=== PATIENT | female | born 1965 ===

== ENCOUNTER 2020-11-22 20:27 | Emergency (ER) | payer SELFPAY ==
[2020-11-22] MEDS ORDERED: ASPIRIN 325 MG TAB PO ONE (21:15)
[2020-11-22 21:48] LABS: Basophils % (Auto) 0.7 % (0.0-1.8); Eosinophils # (Auto) 0.1 K/mm3 (0.0-0.4); Eosinophils % (Auto) 0.9 % (0.0-4.3); Hematocrit 37.6 % (30.3-42.9); Hemoglobin 12.3 gm/dl (10.1-14.3); Lymphocytes # (Auto) 3.4 K/mm3 (1.2-5.4); Mean Corpuscular HGB Conc 33 % (30-34); Mean Corpuscular Volume 75 fl (79-97); Monocytes # (Auto) 0.4 K/mm3 (0.0-0.8); Monocytes % (Auto) 5.8 % (0.0-7.3); Platelet Count 232 K/mm3 (140-440); Red Blood Count 5.02 M/mm3 (3.65-5.03); Red Cell Distribution Width 14.4 % (13.2-15.2)
--- NOTE | 2020-11-22 21:58 | XRay Report ---
CHEST 2 VIEWS INDICATION: chestpain. COMPARISON: None FINDINGS: SUPPORT DEVICES: None. HEART: Within normal limits. LUNGS/PLEURA: No acute air space or interstitial disease. No pneumothorax. ADDITIONAL FINDINGS: None. IMPRESSION: 1. No acute findings. Signer Name: Chaim Porras MD Signed: 11/22/2020 9:54 PM Workstation Name: [id number]
[2020-11-22 22:07] LABS: Alanine Aminotransferase 19 units/L (7-56); Albumin 4.3 g/dL (3.9-5); BUN/Creatinine Ratio 23; Blood Urea Nitrogen 18 mg/dL (7-17); Calcium 9.8 mg/dL (8.4-10.2); Hemolysis Index 3
--- NOTE | 2020-11-22 22:13 | Emergency Department Report ---
ED Chest Pain HPI - General Chief Complaint: Chest Pain Stated Complaint: CHEST PAIN/POSS ANXIETY PUI?: No Time Seen by Provider: 11/22/20 21:52 Source: patient Mode of arrival: Ambulatory Limitations: No Limitations - History of Present Illness Initial Comments: Chief complaint: Chest pain HPI: This is a 55-year-old female with history of hypertension who presents with chest pain 3 hours prior to arrival. She has left-sided sticking tight sensation which lasted several minutes. She denies shortness of breath, fever, cough, nausea. She has been under a lot of stress. A few months prior, she had to bury her older sister and great nephew who were both killed by her estranged . Ex- is still on the loose. Patient is very upset that she has not received just for this horrible tragedy. Patient denies history of chest pain patient has history of heart disease. She denies family history of heart disease. MD Complaint: chest pain -: Gradual, hour(s) (3 hours prior to arrival) Onset: during rest Pain Location: left chest Pain Radiation: none Severity: moderate Severity scale (0 -10): 5 Quality: tightness, pressure, other (Sticking sensation) Consistency: now resolved Improves With: rest Worsens With: nothing re: denies: nausea, vomting, diaphoresis, dyspnea, sense of impending doom Treatments Prior to Arrival: none - Related Data Allergies Allergy/AdvReac Type Severity Reaction Status Date / Time No Known Allergies Allergy Unverified 11/22/20 20:56 Heart Score - HEART Score History: Slightly suspicious EKG: Normal Age: 45-65 Risk factors: 1-2 risk factors Troponin: < normal limit HEART Score: 2 - EKG Read Time Time EKG Completed: 20:37 EKG Read Time: 20:40 ED Review of Systems ROS: Stated complaint: CHEST PAIN/POSS ANXIETY Other details as noted in HPI Comment: All other systems reviewed and negative Constitutional: denies: fever, malaise Respiratory: denies: cough, shortness of breath Cardiovascular: chest pain. denies: palpitations, edema, syncope Gastrointestinal: denies: abdominal pain, nausea, vomiting, diarrhea, constipation Psychiatric: denies: suicidal thoughts ED Past Medical Hx - Past Medical History Previous Medical History?: Yes Hx Hypertension: Yes - Surgical History Past Surgical History?: No - Family History Family history: hypertension, other (No family history of cardiac disease) - Social History Smoking Status: Never Smoker Substance Use Type: None ED Physical Exam - General Limitations: No Limitations General appearance: alert, in no apparent distress, other (Tearful obviously upset) - Head Head exam: Present: atraumatic, normocephalic - Eye Eye exam: Present: normal appearance - ENT ENT exam: Present: mucous membranes moist - Neck Neck exam: Present: normal inspection, full ROM - Respiratory Respiratory exam: Present: normal lung sounds bilaterally. Absent: respiratory distress, wheezes, rales, rhonchi, stridor - Cardiovascular Cardiovascular Exam: Present: regular rate, normal rhythm, normal heart sounds. Absent: systolic murmur, diastolic murmur, rubs, gallop - GI/Abdominal GI/Abdominal exam: Present: soft, normal bowel sounds. Absent: distended, tenderness, guarding, rebound - Extremities Exam Extremities exam: Present: normal inspection - Neurological Exam Neurological exam: Present: alert, oriented X3 - Psychiatric Psychiatric exam: Present: normal affect, normal mood - Skin Skin exam: Present: warm, dry, intact, normal color. Absent: rash ED Course Vital Signs 11/22/20 11/22/20 20:33 22:40 Temperature 99.0 F 99.1 F Pulse Rate 79 69 Respiratory 18 18 Rate Blood Pressure 175/94 Blood Pressure 111/81 [Left] O2 Sat by Pulse 95 95 Oximetry ED Medical Decision Making - Lab Data Result diagrams: 11/22/20 21:22 11/22/20 21:22 Laboratory Results - last 24 hr 11/22/20 11/22/20 21:22 21:22 WBC 7.1 RBC 5.02 Hgb 12.3 Hct 37.6 MCV 75 L MCH 25 L MCHC 33 RDW 14.4 Plt Count 232 Lymph % (Auto) 47.0 H Dixon % (Auto) 5.8 Eos % (Auto) 0.9 Baso % (Auto) 0.7 Lymph # (Auto) 3.4 Dixon # (Auto) 0.4 Eos # (Auto) 0.1 Baso # (Auto) 0.0 Seg Neutrophils % 45.6 Seg Neutrophils # 3.2 Sodium 142 Potassium 3.9 Chloride 104.4 Carbon Dioxide 25 Anion Gap 17 BUN 18 H Creatinine 0.8 Estimated GFR > 60 BUN/Creatinine Ratio 23 Glucose 88 Calcium 9.8 Total Bilirubin 0.30 AST 18 ALT 19 Alkaline Phosphatase 87 Troponin T < 0.010 Total Protein 6.9 Albumin 4.3 Albumin/Globulin Ratio 1.7 Laboratory Results - last 24 hr 11/22/20 11/22/20 11/22/20 21:22 21:22 23:32 WBC 7.1 RBC 5.02 Hgb 12.3 Hct 37.6 MCV 75 L MCH 25 L MCHC 33 RDW 14.4 Plt Count 232 Lymph % (Auto) 47.0 H Dixon % (Auto) 5.8 Eos % (Auto) 0.9 Baso % (Auto) 0.7 Lymph # (Auto) 3.4 Dixon # (Auto) 0.4 Eos # (Auto) 0.1 Baso # (Auto) 0.0 Seg Neutrophils % 45.6 Seg Neutrophils # 3.2 Sodium 142 Potassium 3.9 Chloride 104.4 Carbon Dioxide 25 Anion Gap 17 BUN 18 H Creatinine 0.8 Estimated GFR > 60 BUN/Creatinine Ratio 23 Glucose 88 Calcium 9.8 Total Bilirubin 0.30 AST 18 ALT 19 Alkaline Phosphatase 87 Troponin T < 0.010 < 0.010 Total Protein 6.9 Albumin 4.3 Albumin/Globulin Ratio 1.7 - EKG Data -: EKG Interpreted by Tn EKG shows normal: sinus rhythm, axis, intervals, QRS complexes, ST-T waves Rate: normal - EKG Data Interpretation: normal EKG 11/22/20 22:09 EKG obtained 2036 EKG interpreted by pr Rate 75 bpm normal sinus rhythm normal rate normal axis normal intervals no ST elevation no ST-T signs of ischemia normal EKG - Radiology Data Radiology results: report reviewed [facility] [address] [place] [address] XRay Report Signed Patient: HUBERT CATHERINE MR#: [id number] 87 : 1965 Acct:[id number] Age/Sex: 55 / F ADM Date: 11/22/20 Loc: ED Attending Dr: Ordering Physician: Laureen Maier MD Date of Service: 11/22/20 Procedure(s): XR chest routine 2V Accession Number(s): [id number] cc: Laureen Maier MD Fluoro Time In Minutes: CHEST 2 VIEWS INDICATION: chestpain. COMPARISON: None FINDINGS: SUPPORT DEVICES: None. HEART: Within normal limits. LUNGS/PLEURA: No acute air space or interstitial disease. No pneumothorax. ADDITIONAL FINDINGS: None. IMPRESSION: 1. No acute findings. Signer Name: Chaim Porras MD Signed: 11/22/2020 9:54 PM Workstation Name: [id number] Transcribed By: DAMON Dictated By: Chaim Porras MD Electronically Authenticated By: Chaim Porras MD Signed Date/Time: 11/22/202153 DD/ 53 TD/TT: - Medical Decision Making 1. Chest pain: ACS is a consideration however patient is low risk for major adverse cardiac event. Heart score 2. No persistent chest pain to indicate alternative emergent diagnoses such as pulmonary embolism or aortic dissection. No evidence of pneumothorax or infiltrate on chest radiograph. Troponin x2 both negative. EKG normal. Cardiology outpatient referral faxed to [facility]. Patient understands to call on Tuesday for cardiology follow- up. 2. Stress grief reaction. Patient is tearful while recounting the horrible tragedy of losing her great nephew and older sister. She politely declined sleep aid. I recommended counseling. Patient is discharged home in stable condition. She is currently chest pain- free. CBC chemistry within normal limits. Chest radiograph EKG both normal. Critical care attestation.: If time is entered above; I have spent that time in minutes in the direct care of this critically ill patient, excluding procedure time. ED Disposition Clinical Impression: Chest pain, Grief reaction Disposition: - TO HOME OR SELFCARE Is pt being admited?: No Does the pt Need Aspirin: No Condition: Stable Instructions: Nonspecific Chest Pain, Adult, Complicated Grief Referrals: ANTOLIN ROSA MD [Staff Physician] - 2-3 Days
[2020-11-22 23:17] VITALS: BP 111/81
--- NOTE | 2020-11-24 17:57 | Electrocardiograph Report ---
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
== END 2020-11-23 00:15 | disposition home or self-care (01) ==
LOC: ED 20:27
DX: R07.89 Other chest pain (principal); F43.20 Adjustment disorder, unspecified; I10 Essential (primary) hypertension; Z79.899 Other long term (current) drug therapy
CPT/HCPCS: 36415; 71046; 80053; 84484; 85025; 93005; 99283